=== PATIENT | female | born 1985 | race African-American/Black ===

== ENCOUNTER 2018-04-25 22:42 | Emergency (ER) | payer BC ==
[~2018-04-25] VITALS: Ht 162.6 cm; Wt 127.0 kg
--- NOTE | 2018-04-25 22:57 | NUR ---
DR JOSE ORANTES MD AT BEDSIDE FOR MSE.
[2018-04-25] MEDS ORDERED: MECLIZINE HCL 25 MG TABLET PO ONE (23:00)
--- NOTE | 2018-04-25 23:10 | NUR ---
PT AMBULATED TO AND FROM BATHROOM W/ STEADY GAIT. DENIES DIZZINESS AT THIS TIME.
[2018-04-25] MEDS ORDERED: MECLIZINE HCL 25 MG TABLET ONE (23:17)
[2018-04-25 23:38] LABS: *BILIRUBIN,URIN NEGATIVE (NEGATIVE); *BLOOD, URINE NEGATIVE (NEGATIVE); *COLOR,URINE YELLOW (YELLOW); *KETONES,URINE NEGATIVE (NEGATIVE); *PROTEIN,URINE NEGATIVE (NEGATIVE); *UROBILINOGEN,URINE 0.2 E.U./dl (NORMAL); LEUKOCYTE ESTERASE ,URINE 1+ (NEGATIVE); NITRITE, URINE NEGATIVE (NEGATIVE); UGLUCOSE NEGATIVE (NEGATIVE)
[2018-04-25 23:48] LABS: *CLARITY,URINE HAZY (CLEAR)
[2018-04-25 23:50] LABS: *URINE HCG, QUAL NEGATIVE (NEGATIVE); BACTERIA,URINE MODERATE /HPF (NONE SEEN); SQUAMOUS EPITHELIAL CELL,UR MANY /HPF (NONE SEEN)
[2018-04-26] MEDS ORDERED: SULFAMETH/TRIMETH 800/160 MG TABLET ONE (00:11)
--- NOTE | 2018-04-26 00:14 | NUR ---
Patient discharged to home in stable conditon. Written and verbal after care instructions given. Patient verbalizes understanding of instructions. Pt ambulated w/ steady gait. Denies dizziness or SOB. Pt took all personal belongings.
[2018-04-26 00:15] VITALS: BP 120/83
[2018-04-26] MEDS ORDERED: SULFAMETH/TRIMETH 800/160 MG TABLET PO ONE (00:15)
== END 2018-04-26 00:16 | disposition home or self-care (01) ==
LOC: ER 22:45
DX: N39.0 Urinary tract infection, site not specified (principal); H83.09 Labyrinthitis, unspecified ear
CPT/HCPCS: 81001; 84703; 99284; A4663; J8597

== ENCOUNTER 2018-04-27 13:52 | Emergency (ER) | payer BC ==
[~2018-04-27] VITALS: Ht 162.6 cm; Wt 127.0 kg
[2018-04-27 15:28] LABS: BASOPHILS # (AUTO) 0.1 K/uL (0.0-8.0); EOSINOPHILS # (AUTO) 0.1 K/uL (0.0-0.7); EOSINOPHILS % (AUTO) 1.1 % (0.0-7.0); HEMATOCRIT 39.8 % (31.2-41.9); HEMOGLOBIN 13.2 g/dL (10.9-14.3); LYMPHOCYTES # (AUTO) 2.3 K/uL (20.0-40.0); LYMPHOCYTES % (AUTO) 32.9 % (20.5-51.5); MEAN CORPUSCULAR HEMOGLOBIN 29.3 uug (24.7-32.8); MEAN CORPUSCULAR HGB CONC 33 g/dL (32.3-35.6); MEAN CORPUSCULAR VOLUME 88.3 fL (75.5-95.3); MONOCYTES # (AUTO) 0.4 K/uL (2.0-10.0); MONOCYTES % (AUTO) 5.9 % (0.0-11.0); NEUTROPHILS # (AUTO) 4.2 K/uL (1.8-8.9); NEUTROPHILS % (AUTO) 59.1 % (38.5-71.5); PLATELET COUNT (AUTO) 252 K/uL (179-408); RED BLOOD CELL COUNT(AUTO) 4.51 MIL/uL (3.63-4.92)
[2018-04-27 15:32] LABS: CREATININE 1.1 mg/dL (0.6-1.3); POTASSIUM 4.2 mmol/L (3.5-5.1)
[2018-04-27 15:38] LABS: BILIRUBIN,DIRECT 0.1 mg/dL (0.0-0.2); BILIRUBIN,TOTAL 0.3 mg/dL (0.2-1.0)
[2018-04-27 15:46] LABS: THYROID STIMULATING HORMONE 2.199 mIU/mL (0.358-3.740)
--- NOTE | 2018-04-27 16:41 | NUR ---
Patient discharged to home in stable conditon. Written and verbal after care instructions given. Patient verbalizes understanding of instructions.PT WALKS IN STEADY GAIT, PT SAYS FEELS BETTER. PT ACCOMPANIED BY FAMILY MEMBER.
[2018-04-27 16:44] VITALS: BP 119/85
== END 2018-04-27 16:45 | disposition home or self-care (01) ==
LOC: ER 13:55
DX: R27.0 Ataxia, unspecified (principal)
CPT/HCPCS: 70450; 80048; 80076; 84439; 84443; 84479; 84484; 85025; 85730; 93005; 99285; A4663; 36415; 70030-TC

== ENCOUNTER 2018-05-15 15:35 | Inpatient (IN) | payer BC ==
[~2018-05-15] VITALS: Ht 162.6 cm; Wt 124.3 kg
[2018-05-15] MEDS ORDERED: MAGNESIUM HYDROXIDE 30 ML LIQUID UDC PO PRN (15:45)
[2018-05-15] MEDS ORDERED: Z GUARD REMEDY PASTE 57 GM TUBE TOP PRN (15:45)
[2018-05-15] MEDS ORDERED: ATOR20TA PO (15:52)
[2018-05-15] MEDS ORDERED: ASPI81TA31 PO (15:52)
[2018-05-15] MEDS ORDERED: DOCU-141 PO (15:52)
[2018-05-15] MEDS ORDERED: PRED50TA PO (15:52)
[2018-05-15 16:37] VITALS: BP 122/70
[2018-05-15] MEDS ORDERED: MIRALAX 17 GM POWD.PACK PO ONE (17:30)
--- NOTE | 2018-05-15 19:45 | NUR ---
Received pt in bed, AAO x 4 watching television with family member at bedside. No acute distress noted. Verbally responsive and able to make needs known. Denies pain or discomfort at this time. All safety measures and fall precautions maintained. Call light and all personal belongings within reach. Will continue to monitor.
[2018-05-15 20:07] VITALS: BP 101/50
--- NOTE | 2018-05-15 20:14 | NUR ---
r[facility]CE[facility] PAT[facility] ALERT AND ORIENTEDX4. WITH DX OF PONTIN LESION, DYSARTHRIA. CONTINENT IN BOWEL AND BLADDER. WITH LEFT SIDED WEAKNESS. MD CASH NOTIFIED. ORDERS CARRIED OUT, FOR NO SKIN PROBLEM NOTED. WILL ENDORSE
[2018-05-15] MEDS: SENNOSIDES 1 TABLET PO SCH (20:56)
[2018-05-15] MEDS: ATORVASTATIN 20 MG TABLET PO SCH (20:56)
[2018-05-15] MEDS: DOCUSATE SODIUM 100 MG CAPSULE PO SCH (20:56)
[2018-05-16 05:03] VITALS: BP 102/63
[2018-05-16 06:53] LABS: BASOPHILS % (AUTO) 0.3 % (0.0-2.0); EOSINOPHILS # (AUTO) 0.1 K/uL (0.0-0.7); EOSINOPHILS % (AUTO) 0.7 % (0.0-7.0); HEMATOCRIT 40.3 % (31.2-41.9); HEMOGLOBIN 13.6 g/dL (10.9-14.3); LYMPHOCYTES # (AUTO) 3.8 K/uL (20.0-40.0); LYMPHOCYTES % (AUTO) 34.8 % (20.5-51.5); MEAN CORPUSCULAR HEMOGLOBIN 29.3 uug (24.7-32.8); MEAN CORPUSCULAR HGB CONC 34 g/dL (32.3-35.6); MONOCYTES # (AUTO) 0.8 K/uL (2.0-10.0); MONOCYTES % (AUTO) 7.2 % (0.0-11.0); NEUTROPHILS # (AUTO) 6.2 K/uL (1.8-8.9); PLATELET COUNT (AUTO) 233 K/uL (179-408); RED BLOOD CELL COUNT(AUTO) 4.63 MIL/uL (3.63-4.92); WHITE BLOOD COUNT (AUTO) 10.9 K/uL (3.8-11.8)
[2018-05-16 07:06] LABS: CREATININE 1.1 mg/dL (0.6-1.3); MAGNESIUM 2.1 mg/dL (1.8-2.4); PHOSPHOROUS 3.9 mg/dL (2.5-4.9); POTASSIUM 3.5 mmol/L (3.5-5.1)
[2018-05-16] MEDS: DOCUSATE SODIUM 100 MG CAPSULE PO SCH ×2 (08:12→20:34)
[2018-05-16] MEDS: predniSONE 20 MG TABLET PO SCH (08:13)
[2018-05-16] MEDS: ASPIRIN 81 MG TAB.CHEW PO SCH (08:13)
[2018-05-16] MEDS ORDERED: PREDNISONE 60 MG PO SCH (09:00)
--- NOTE | 2018-05-16 09:35 | NUR ---
Received patient awake, alert x4. No complaints of pain. No dizziness or headache noted. Not in any form of distress.
--- NOTE | 2018-05-16 10:00 | NUR ---
Up with occupational therapy, showered with maximum assistance for lower extremities and minimum assistance for upper extremities
[2018-05-16 10:05] VITALS: BP 104/59
[2018-05-16 20:00] VITALS: BP 117/80
[2018-05-16] MEDS: SENNOSIDES 1 TABLET PO SCH (20:34)
[2018-05-16] MEDS: ATORVASTATIN 20 MG TABLET PO SCH (20:34)
[2018-05-17 05:56] VITALS: BP 139/76
--- NOTE | 2018-05-17 06:18 | NUR ---
PT ALERT,ORIENTED ,WITH LEFT SIDE WEAKNESS.HAS HER MENSTRUAL PERIOD, INCONTINENT OF URINE BY CHOICE AND USES DIAPER AT NIGHT. MODERATE ASSIST IN TURNING, PT IS MORBID OBESE. DENIES ANY PAIN , NO BM OVERNIGHT,VSS,AFEBRILE.DYSARTHIA STILL NOTED, SWALLOW PILL WITHOUT PROBLEM,WILL CONTINUE TO MONITOR,VSS,AFEBRILE.
[2018-05-17] MEDS: PANTOPRAZOLE SODIUM 40 MG TABLET.DR PO SCH (06:53)
[2018-05-17 08:40] VITALS: BP 120/60
[2018-05-17] MEDS: predniSONE 20 MG TABLET PO SCH (08:48)
[2018-05-17] MEDS: DOCUSATE SODIUM 100 MG CAPSULE PO SCH ×2 (08:48→21:01)
[2018-05-17] MEDS: ASPIRIN 81 MG TAB.CHEW PO SCH (08:48)
--- NOTE | 2018-05-17 09:00 | NUR ---
Patient seen upon rounds, denies pain and not in distress, no complaints at this time, will continue to monitor.
[2018-05-17 15:52] VITALS: BP 115/61
[2018-05-17 20:00] VITALS: BP 104/53
--- NOTE | 2018-05-17 20:00 | NUR ---
Patient received at bed awake , alert, and oriented x4. Able to make needs known. No acute distress or SOB was noted. Bed in low position, bed alarm and brake on for safety measures. call light and personal belongings within reach. Continue to monitor.
[2018-05-17] MEDS: ATORVASTATIN 20 MG TABLET PO SCH (21:01)
[2018-05-17] MEDS: SENNOSIDES 1 TABLET PO SCH (21:01)
[2018-05-18 04:00] VITALS: BP 134/62
--- NOTE | 2018-05-18 05:32 | NUR ---
Patient had a good sleep and was stable throughout the shift. No acute distress or SOB was noted. Med given as ordered. Bed in low position, bed alarm and brake on for safety measures. call light and personal belongings within reach. Will endorse to the day shift nurse accordingly.
[2018-05-18] MEDS: PANTOPRAZOLE SODIUM 40 MG TABLET.DR PO SCH (06:19)
--- NOTE | 2018-05-18 07:30 | NUR ---
Awake, alert, oriented x 4, on moderate high back rest. Denies pain. Not in distress. Call light with in reach. Instructed to call for assistance
[2018-05-18 08:00] VITALS: BP 145/105
[2018-05-18] MEDS: predniSONE 20 MG TABLET PO SCH (08:28)
[2018-05-18] MEDS: ASPIRIN 81 MG TAB.CHEW PO SCH (08:29)
[2018-05-18] MEDS: DOCUSATE SODIUM 100 MG CAPSULE PO SCH ×2 (08:29→21:41)
[2018-05-18 16:36] VITALS: BP 129/76
--- NOTE | 2018-05-18 17:48 | NUR ---
Participated and tolerated well the therapies.
[2018-05-18 20:45] VITALS: BP 151/89
[2018-05-18] MEDS: ATORVASTATIN 20 MG TABLET PO SCH (21:41)
[2018-05-18] MEDS: SENNOSIDES 1 TABLET PO SCH (21:41)
[2018-05-19] MEDS: PANTOPRAZOLE SODIUM 40 MG TABLET.DR PO SCH (06:29)
[2018-05-19 06:43] VITALS: BP 118/67
[2018-05-19 07:30] VITALS: BP 107/61
[2018-05-19] MEDS: DOCUSATE SODIUM 100 MG CAPSULE PO SCH ×2 (08:32→20:17)
[2018-05-19] MEDS: ASPIRIN 81 MG TAB.CHEW PO SCH (08:32)
[2018-05-19] MEDS: predniSONE 20 MG TABLET PO SCH (08:35)
[2018-05-19 15:44] VITALS: BP 114/69
--- NOTE | 2018-05-19 18:14 | NUR ---
SBAR report received this morning, board updated. Pt assessed, no acute distress. Pt compliant and cooperative with medications and care as provided. All comfort and safety needs met at this time. Pt assisted to toilet, for a large BMx1. Pt clean and dry. Call light within reach. Will continue to monitor and endorse to oncoming night worker.
[2018-05-19] MEDS: ATORVASTATIN 20 MG TABLET PO SCH (20:17)
[2018-05-19] MEDS: SENNOSIDES 1 TABLET PO SCH (20:17)
[2018-05-19 21:22] VITALS: BP 108/61
--- NOTE | 2018-05-19 23:52 | NUR ---
Pt received at the beginning of shift in the wheelchair, with her mother outside at the patio pushing the wheelchair to get some fresh air. AAO x3. VSS. Pt was safely put back to bed. No acute distress noted. No c/o pain or discomfort. Meds given as ordered. Safety measures maintained. Call light and personal belongings within reach. Will continue to monitor.
[2018-05-20 05:00] VITALS: BP 112/69
[2018-05-20] MEDS: PANTOPRAZOLE SODIUM 40 MG TABLET.DR PO SCH (06:19)
--- NOTE | 2018-05-20 08:04 | NUR ---
SBAR report received, board updated. Pt assessed, AAOx3 no acute distress or SOB. Plan for today discussed. Bed in locked and lowest position with side rails up x2. All comfort and safety measure implemented. Call light within reach. Will continue to monitor.
[2018-05-20] MEDS: DOCUSATE SODIUM 100 MG CAPSULE PO SCH ×2 (08:24→20:43)
[2018-05-20] MEDS: predniSONE 20 MG TABLET PO SCH (08:25)
[2018-05-20] MEDS: ASPIRIN 81 MG TAB.CHEW PO SCH (08:25)
[2018-05-20 09:45] VITALS: BP 120/76
[2018-05-20 16:01] VITALS: BP 114/63
--- NOTE | 2018-05-20 18:39 | NUR ---
Pt has remained in stable condition throughout this shift. No change in status. Call light and personal belongings placed within reach. Will continue to monitor and endorse to on coming housekeeping room attendant.
[2018-05-20] MEDS: ATORVASTATIN 20 MG TABLET PO SCH (20:43)
[2018-05-20] MEDS: SENNOSIDES 1 TABLET PO SCH (20:44)
[2018-05-20 20:46] VITALS: BP 122/80
--- NOTE | 2018-05-21 | NUR ---
SPECIAL AGENT found some blood on the patient's underwear. Upon assessment of perineal area no blood was found. No distress was noted. No complain of pain. Continue to monitor.
--- NOTE | 2018-05-21 05:24 | NUR ---
End of the shift note Patient had a good sleep and was stable throughout the shift. No acute distress or SOB was noted. Med given as ordered. All needs attended and participated. Bed in low position, bed alarm and brake on for safety measures. call light and personal belongings within reach. Will endorse to the day shift nurse accordingly.
[2018-05-21 05:55] VITALS: BP 128/56
[2018-05-21] MEDS: PANTOPRAZOLE SODIUM 40 MG TABLET.DR PO SCH (06:34)
[2018-05-21] MEDS: ASPIRIN 81 MG TAB.CHEW PO SCH (08:45)
[2018-05-21] MEDS: predniSONE 20 MG TABLET PO SCH (08:45)
[2018-05-21] MEDS: DOCUSATE SODIUM 100 MG CAPSULE PO SCH (08:45)
--- NOTE | 2018-05-21 10:07 | NUR ---
NURSE NOTES: PATIENT ALERT AND ORIENTED X 4, ABLE TO MAKE NEEDS KNOWN REMAINED STABLE WITH NO SOB OR DISTRESS. DENIES ANY PAIN OR DISCOMFORTS. SAFETY PRECAUTIONS OBSERVED. BED ALARM AND BED BRAKE SON FOR SAFETY. CALL LIGHT AND TELEPHONE WITHIN REACH AT ALL TIMES. PATIENT WAS DISCHARGED HOME WITH HOME HEALTH. HEALTH TEACHINGS PROVIDED TO PATIENT AND MOTHER USING TEACH BACK METHOD. VERBALIZED UNDERSTANDING. ENCOURAGED TO ASK QUESTIONS. PATIENT WAS DISCHARGED WITH ALL BELONGINGS COMPLETE. NO MISSING ITEMS. SKIN REMAINED INTACT. NO WOUNDS. PHOTOS TAKEN FILED IN THE CHART. PATIENT WAS DISCHARGED WITH [facility]WW, TRANSPORTED BY RN TO PRIVATE VEHICLE IN STABLE CONDITION.
== END 2018-05-21 10:07 | disposition home health service (06) | DRG 56 ==
PROVIDERS: ADMIT Physical Medicine & Rehabilitation Pain Medicine; ATTEND Physical Medicine & Rehabilitation Pain Medicine
DX: I69.354 Hemiplegia and hemiparesis following cerebral infarction affecting left non-dominant side (principal); G04.00 Acute disseminated encephalitis and encephalomyelitis, unspecified; D68.59 Other primary thrombophilia; Z68.42 Body mass index [BMI] 45.0-49.9, adult; G81.94 Hemiplegia, unspecified affecting left nondominant side; G93.89 Other specified disorders of brain; E66.01 Morbid (severe) obesity due to excess calories; I10 Essential (primary) hypertension; R26.0 Ataxic gait; R26.81 Unsteadiness on feet; R47.1 Dysarthria and anarthria; R29.810 Facial weakness; Z82.3 Family history of stroke; Z83.3 Family history of diabetes mellitus; E28.2 Polycystic ovarian syndrome
CPT/HCPCS: 36415; 83735; 84100; 85025; 92507; 92523; 92526; 92610; 97110; 97112; 97116; 97165; 97530; 97535; A4663; J7512

== ENCOUNTER 2018-06-02 10:47 | Emergency (ER) | payer BC ==
[~2018-06-02] VITALS: Ht 162.6 cm; Wt 125.2 kg
[~2018-06-02 10:47] MED LIST: ASPI81TA31 PO; ATOR20TA PO; DOCU-141 PO; PRED50TA PO
[2018-06-02 11:48] LABS: BASOPHILS # (AUTO) 0.1 K/uL (0.0-8.0); BASOPHILS % (AUTO) 0.3 % (0.0-2.0); EOSINOPHILS % (AUTO) 0.1 % (0.0-7.0); HEMATOCRIT 35.9 % (31.2-41.9); LYMPHOCYTES # (AUTO) 1.4 K/uL (20.0-40.0); LYMPHOCYTES % (AUTO) 9.4 % (20.5-51.5); MEAN CORPUSCULAR HEMOGLOBIN 29.8 uug (24.7-32.8); MEAN CORPUSCULAR HGB CONC 33 g/dL (32.3-35.6); MEAN CORPUSCULAR VOLUME 89.2 fL (75.5-95.3); MONOCYTES # (AUTO) 0.5 K/uL (2.0-10.0); MONOCYTES % (AUTO) 2.9 % (0.0-11.0); NEUTROPHILS # (AUTO) 13.4 K/uL (1.8-8.9); NEUTROPHILS % (AUTO) 87.3 % (38.5-71.5); PLATELET COUNT (AUTO) 220 K/uL (179-408); RED BLOOD CELL COUNT(AUTO) 4.02 MIL/uL (3.63-4.92); WHITE BLOOD COUNT (AUTO) 15.4 K/uL (3.8-11.8)
--- NOTE | 2018-06-02 11:55 | NUR ---
Pt ambulated to restroom with walker, urine specimen obtained and sent to lab.
[2018-06-02 12:02] LABS: POTASSIUM 3.7 mmol/L (3.5-5.1)
[2018-06-02 12:07] LABS: BILIRUBIN,TOTAL 0.5 mg/dL (0.2-1.0); TOTAL PROTEIN, SERUM 6.5 g/dL (6.4-8.2)
[2018-06-02 12:25] LABS: *BILIRUBIN,URIN NEGATIVE (NEGATIVE); *BLOOD, URINE Trace-lysed (NEGATIVE); *CLARITY,URINE SLIGHTLY CLOUDY (CLEAR); *COLOR,URINE YELLOW (YELLOW); *KETONES,URINE NEGATIVE (NEGATIVE); *PROTEIN,URINE TRACE (NEGATIVE); LEUKOCYTE ESTERASE ,URINE 1+ (NEGATIVE); NITRITE, URINE NEGATIVE (NEGATIVE); PH,URINE 7.5 (5.0-8.0); UGLUCOSE NEGATIVE (NEGATIVE)
[2018-06-02 12:26] LABS: *URINE HCG, QUAL NEGATIVE (NEGATIVE)
[2018-06-02 12:31] LABS: BACTERIA,URINE FEW /HPF (NONE SEEN); SQUAMOUS EPITHELIAL CELL,UR MODERATE /HPF (NONE SEEN); URINE AMORPHOUS PHOSPHATES FEW /HPF
[2018-06-02] MEDS ORDERED: IV NS 1000 ML 1,000 ML IV ONE (12:45)
--- NOTE | 2018-06-02 12:51 | NUR ---
Pt to CT via [facility].
--- NOTE | 2018-06-02 13:04 | NUR ---
Pt back from CT.
--- NOTE | 2018-06-02 15:25 | NUR ---
Pt states she feels much better and wants to go home. Pt has been ambulatory with walker. States she felt she was dehydrated and felt better after IVF.
--- NOTE | 2018-06-02 15:50 | NUR ---
IV removed. Catheter intact and site benign. Pressure and 4x4 gauze applied to site. No bleeding noted.
--- NOTE | 2018-06-02 15:51 | NUR ---
Patient discharged to home in stable conditon with mother. Written and verbal after care instructions given. Patient and mother verbalized understanding of instructions. Stressed follow with pmd/neurologist. Pt ambulated out of ER using a walker.
[2018-06-02 15:55] VITALS: BP 123/64
== END 2018-06-02 15:55 | disposition home or self-care (01) ==
LOC: ER 10:47
DX: R27.0 Ataxia, unspecified (principal); N39.0 Urinary tract infection, site not specified; D72.829 Elevated white blood cell count, unspecified; Z86.73 Personal history of transient ischemic attack (TIA), and cerebral infarction without residual deficits
CPT/HCPCS: 36415; 70450; 84703; 85025; 85651; 86140; A4663; J7030

== ENCOUNTER 2021-06-08 08:35 | Emergency (ER) | payer BC, OTHER ==
[~2021-06-08] VITALS: Ht 160 cm; Wt 122.5 kg
[2021-06-08 09:14] LABS: HEMATOCRIT 28.2 % (31.2-41.9); MEAN CORPUSCULAR HEMOGLOBIN 21.1 uug (24.7-32.8); MEAN CORPUSCULAR VOLUME 68.9 fL (75.5-95.3); PLATELET COUNT (AUTO) 340 K/uL (179-408)
[2021-06-08 09:21] LABS: CREATININE 1.1 mg/dL (0.6-1.3); POTASSIUM 3.3 mmol/L (3.5-5.1)
[2021-06-08 09:27] LABS: BILIRUBIN,DIRECT 0.2 mg/dL (0.0-0.2); BILIRUBIN,TOTAL 0.5 mg/dL (0.2-1.0); TOTAL PROTEIN, SERUM 7.9 g/dL (6.4-8.2)
[2021-06-08] MEDS ORDERED: ONDANSETRON ODT 4 MG TAB.RAPDIS SL ONE ×2 (09:30→10:45)
[2021-06-08] MEDS ORDERED: ONDANSETRON ODT 4 MG TAB.RAPDIS ONE ×2 (09:50→11:02)
--- NOTE | 2021-06-08 10:36 | NUR ---
PT IS IN ROOM #1B. DR TORRES EVALUATED THE PT.
[2021-06-08] MEDS ORDERED: POTASSIUM CHLORIDE 20 MEQ TAB.PRT.SR PO ONE (10:45)
[2021-06-08] MEDS ORDERED: ONDA4TAB11 PO (10:46)
[2021-06-08] MEDS ORDERED: POTASSIUM CHLORIDE 20 MEQ TAB.PRT.SR ONE (11:03)
--- NOTE | 2021-06-08 11:09 | NUR ---
PT WAS D/C'd TO HOME. D/C INSTRUCTIONS GIVEN TO THE PT BY DR TORRES.
[2021-06-08 11:12] VITALS: BP 139/77
== END 2021-06-08 11:13 | disposition home or self-care (01) ==
LOC: ER 08:35
DX: R06.02 Shortness of breath (principal); R11.10 Vomiting, unspecified; N93.9 Abnormal uterine and vaginal bleeding, unspecified; E87.6 Hypokalemia; D64.9 Anemia, unspecified; G37.9 Demyelinating disease of central nervous system, unspecified; Z79.52 Long term (current) use of systemic steroids; I69.354 Hemiplegia and hemiparesis following cerebral infarction affecting left non-dominant side; I69.393 Ataxia following cerebral infarction
CPT/HCPCS: 36415; 70030-TC; 71045; 76856; 85025; 93005; A4663; Q0162